=== PATIENT | male | born 1985 | race Caucasian/White ===

== ENCOUNTER 2020-02-24 07:44 | Emergency (ER) | payer SELFPAY ==
[2020-02-24] MEDS ORDERED: CEFTRIAXONE INJ 1000 MG VIAL IM ONE (09:21)
[2020-02-24] MEDS ORDERED: LIDOCAINE 1% INJ (10 MG/ML) 10 ML MDV INJ ONE (09:21)
--- NOTE | 2020-02-24 09:31 | ER Document Report ---
ED Oral Problem - General Chief Complaint: Toothache Stated Complaint: FACIAL SWELLING Time Seen by Provider: 02/24/20 09:21 Notes: CHIEF COMPLAINT: Left upper dental pain and facial swelling HPI: 34-year-old male with history of chronically poor dentition presenting for left upper dental pain over the last 2 to 3 days with left facial swelling today. No fever. Patient concerned about a worsening dental infection ROS: See HPI - all other systems were reviewed and are otherwise negative Constitutional: no fever Eyes: no drainage, no blurred vision ENT: no runny nose, no sore throat, positive dental pain, positive facial swelling Integumentary: no rash Allergy: no hives MEDICATIONS: I agree with the patient medications as charted by the RN. ALLERGIES: I agree with the allergies as charted by the RN. PAST MEDICAL HISTORY/PAST SURGICAL HISTORY: Reviewed and agree as charted by RN. SOCIAL HISTORY: Reviewed and agree as charted by RN. FAMILY HISTORY: No significant familial comorbid conditions directly related to patient complaint EXAM: Reviewed vital signs as charted by RN. CONSTITUTIONAL: Alert and oriented and responds appropriately to questions. Well-appearing; well-nourished HEAD: Normocephalic; atraumatic EYES: PERRL; Conjunctivae clear, sclerae non-icteric ENT: normal nose; no rhinorrhea; moist mucous membranes; pharynx without lesions noted, no uvula edema or deviation, no tonsillar hypertrophy, phonation normal. Dentition is relatively poor with multiple areas of fairly significant dental caries. The left upper premolars are essentially blackened and rotted to the gingiva with some edema of the gingiva but no definitive fluctuance. There is left preseptal swelling without erythema to the level of the inferior periorbital rim. No definitive palpable abscess NECK: Supple without meningismus; non-tender; no cervical lymphadenopathy, no masses CARD: capillary refill less than 3 seconds; symmetric distal pulses RESP: Normal chest excursion without splinting or tachypnea ABD/GI: non-distended BACK: The back appears normal EXT: Normal ROM in all joints; no cyanosis, no effusions, no edema SKIN: Normal color for age and race; warm; dry; good turgor NEURO: Moves all extremities equally; Motor and sensory function intact PSYCH: The patient's mood and manner are appropriate. Grooming and personal hygiene are appropriate. MDM: 34-year-old male with facial cellulitis from a dental abscess. no definite abscess for drainage at this time. Will give patient injectable antibiotic given the facial swelling and cellulitis. Will start patient on antibiotics. Strict return precautions discussed - Related Data Allergies/Adverse Reactions: codeine Allergy (Verified 02/24/20 08:38) Past Medical History - Social History Smoking Status: Current Every Day Smoker Chew tobacco use (# tins/day): No Frequency of alcohol use: Social Drug Abuse: Marijuana Family History: Reviewed & Not Pertinent Past Surgical History: Reports: Orthopedic Surgery Physical Exam - Vital signs Vitals: Temp Pulse Resp BP Pulse Ox 97.9 F 83 18 123/72 100 02/24/20 07:48 02/24/20 07:48 02/24/20 07:48 02/24/20 07:48 02/24/20 07:48 Course - Vital Signs Vital signs: Temp Pulse Resp BP Pulse Ox 97.9 F 83 18 123/72 100 02/24/20 07:48 02/24/20 07:48 02/24/20 07:48 02/24/20 07:48 02/24/20 07:48 Discharge - Discharge Clinical Impression: Dental abscess, Facial cellulitis Condition: Stable Disposition: HOME, SELF-CARE Additional Instructions: 1. Take the medications as prescribed, if you were written antibiotics make sure that you finish them. 2. You need to follow up with a dentist for definitive evaluation and care of your dental problems 3. return to the ED for any facial swelling, fever > 101, difficulty swallowing or opening the mouth. 4. You may attempt to follow up with the [facility] for further care as well as through the dental list provided. 5. you may want to consider a dental discount plan such as [email or web address] to help with costs of dental care as you do not have dental insurance Prescriptions: Amoxicillin 1 tab PO TID #30 tab Ibuprofen [Motrin 600 Mg Tablet] 600 mg PO TID #15 tablet Hydrocodone/Acetaminophen [[place] 5-325 mg Tablet] 1 tab PO Q4 PRN #10 tablet PRN Reason:
[2020-02-24 09:56] VITALS: BP 126/68
== END 2020-02-24 09:56 | disposition home or self-care (01) ==
LOC: ER 07:44
DX: K04.7 Periapical abscess without sinus (principal); L03.211 Cellulitis of face; F17.200 Nicotine dependence, unspecified, uncomplicated; F12.10 Cannabis abuse, uncomplicated; Z88.6 Allergy status to analgesic agent; Z88.5 Allergy status to narcotic agent
CPT/HCPCS: 99284; 96372; J0696